=== PATIENT | male | born 1975 | race Caucasian/White ===

== ENCOUNTER 2019-12-11 14:47 | Outpatient (CLI) | payer OTHER, SELFPAY ==
--- NOTE | ~2019-12-11 | CT_ITS ---
EXAMINATION: CT abdomen pelvis w con INDICATION: Abdominal pain TECHNIQUE: Computed tomographic images of the abdomen and pelvis were obtained after the administrati on of 100 cc of Omnipaque 350 intravenous contrast. The dose-length product (DLP) was 1629.01 mGy-cm. Automated exposure control and iterative reconstruction technique were employed. COMPARISON: 08/23/2017 FINDINGS: The lung bases are clear. The heart size is normal. There is a small sliding hiatal hernia. A stable 1.5 cm cyst is noted in the right hepatic lobe. The liver is diffusely low in attenuation w hen compared with the spleen, consistent with hepatic steatosis. The spleen, pancreas, gallbladder, a nd adrenal glands are normal. The kidneys are unremarkable. No pathologically enlarged abdominal or p elvic lymph nodes are identified. There is colonic diverticulosis. There is wall thickening of the di stal descending colon with adjacent stranding of the pericolic fat. There is no evidence of perforati on or abscess. There are no dilated loops of bowel. The appendix is normal. There is an umbilical her ariane containing fat and a small amount of ascites. There is moderate lumbar spondylosis at L5-S1. IMPRESSION: 1. Acute, uncomplicated diverticulitis of the distal descending colon. Reviewed, dictated and finalized at location A.
== END 2019-12-11 14:48 | disposition home or self-care (01) ==
PROVIDERS: PCP Physician Assistant; Visit Provider Physician Assistant
DX: K57.32 Diverticulitis of large intestine without perforation or abscess without bleeding (principal)
CPT/HCPCS: 74177; Q9967

== ENCOUNTER 2020-01-24 09:04 | Emergency (ER) | payer OTHER, SELFPAY ==
--- NOTE | ~2020-01-24 | US_ITS ---
EXAMINATION: US venous doppler [facility] DATE: 01/24/2020 09:45 INDICATION: Left lower limb pain and swelling. TECHNIQUE: Grayscale ultrasound images without and with compression and Doppler ultrasound images of the left lower extremity veins were obtained. COMPARISON: None. FINDINGS: The visualized portions of left common femoral vein, profunda (deep) femoral vein, femoral vein, and greater saphenous vein outflow are patent. There is thrombus in left popliteal, posterior tibial, and peroneal veins. IMPRESSION: 1. Deep vein thrombosis involving left popliteal, peroneal, and posterior tibial veins. I called thi s result to Dr. Smith on 01/24/20 at 9:57 AM. Reviewed, dictated and finalized at location A. IMPRESSION: 1. Deep vein thrombosis involving left popliteal, peroneal, and posterior tibi al veins. I called this result to Dr. Smith on 01/24/20 at 9:57 AM.
[2020-01-24 09:06] VITALS: BP 154/91; PULSE 60; RESP 18; TEMP 36.2; O2SAT 100
--- NOTE | 2020-01-24 09:32 | PC.NURSE ---
Unable to obtain blood at this time, patient taken to ultrasound.
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
[2020-01-24 10:22] LABS: Basophils Percent Auto 0.4 % (0.2-1.2); Eosinophils Absolute Auto 0.3 K/mm3 (0-0.3); Eosinophils Percent Auto 2.7 % (0-4.4); Hematocrit 39.4 % (42.0-52.0); Hemoglobin 13.3 g/dL (14.0-18.0); Immature Granulocyte Absolute 0.02 K/mm3 (0.00-0.031); Immature Granulocyte Percent A 0.2 % (0-0.5); Lymphocytes Absolute Auto 2.27 K/mm3 (0.9-3.2); Lymphocytes Percent Auto 24.8 % (18.3-44.2); Mean Corpuscular HGB Conc 33.8 g/dl (32-36); Mean Corpuscular Volume 88.7 fl (80-100); Mean Platelet Volume 10.9 fl (7.4-10.4); Monocytes Absolute Auto 1.1 K/mm3 (0.1-0.6); Monocytes Percent Auto 11.5 % (2.6-8.5); Neutrophils Absolute Auto 5.5 K/mm3 (1.3-6.7); Neutrophils Percent Auto 60.4 % (45.5-73.1); Platelet Count Result 144 k/mm3 (150-375); Red Blood Count 4.44 M/mm3 (4.6-6.20); Red Cell Distribution Width 12.6 % (11.5-14.5); White Blood Count 9.1 K/mm3 (4.5-10.0)
[2020-01-24 10:31] LABS: Blood Urea Nitrogen 19 mg/dL (9-20); Calcium 8.6 mg/dL (8.4-10.2); Carbon Dioxide 26 mmol/L (22-30); Chloride 107 mmol/L (98-107); Estimated CRCL calculation 131 ml/min; Estimated Glomerular Filt Rate > 60; Glucose 97 mg/dL (75-110); Sodium 138 mmol/L (137-145)
[2020-01-24 10:41] VITALS: BP 124/77; PULSE 61; RESP 18; O2SAT 95
== END 2020-01-24 10:42 | disposition home or self-care (01) ==
PROVIDERS: Emergency Provider Emergency Medicine; PCP Physician Assistant
DX: I82.432 Acute embolism and thrombosis of left popliteal vein (principal); I82.452 Acute embolism and thrombosis of left peroneal vein; I82.442 Acute embolism and thrombosis of left tibial vein; F41.9 Anxiety disorder, unspecified; G47.33 Obstructive sleep apnea (adult) (pediatric); E66.9 Obesity, unspecified; Z68.33 Body mass index [BMI] 33.0-33.9, adult
CPT/HCPCS: 36415; 80048; 85025; 93971; 99284

== ENCOUNTER 2020-01-27 10:15 | Outpatient (CLI) | payer OTHER, SELFPAY ==
--- NOTE | ~2020-01-27 | CT_ITS ---
EXAMINATION: CTA chest PE protocol DATE: 01/27/2020 10:42 INDICATION: New venous thrombosis TECHNIQUE: Computed tomography angiography (CTA) of the chest was performed with 100 mL Omnipaque-350 intravenous contrast timed to evaluate the pulmonary arteries. Coronal maximum intensity projection 3D-reconstructions were created by the technologist. Automated exposure control and iterative reconst ruction technique were employed. Exam dose: 950.53 mGy-cm total exam DLP. COMPARISON: 01/24/2020 venous duplex examination of the left upper extremity FINDINGS: There is diagnostic contrast enhancement of the pulmonary arteries. Sagittal embolus right pulmonary artery, with thrombus extending into the right upper, middle and low er lobes. There is much lesser embolism to the left lower lobe. No thoracic aortic aneurysm or dissection. Borderline heart size. No pericardial or pleural effusion. No hilar or mediastinal mass lesion or adenopathy. The lungs are clear of infiltrate or consolidation. There is an approximately 1.7 cm right hepatic hypoattenuating lesion, insufficiently characterized o n this limited examination. Hepatic steatosis. There is a small sliding hiatal hernia. IMPRESSION: Bilateral pulmonary emboli, greater on the right I personally informed the patient of the findings of bilateral pulmonary emboli and the seriousness o f the diagnosis and the need for hospital admission. I attempted to contact the referring provider's telephone number at [phone], but repeatedly and busy signals. I informed the CT staff and the rad iology front office staff of the situation and asked them to contact the referring provider and notif y him or her that the patient was in the admitting office with a diagnosis of pulmonary embolism. Sander ntified two people in the admitting department of the situation as well. Reviewed, dictated and finalized at Location A. Reviewed, dictated and finalized at location A. IMPRESSION: Bilateral pulmonary emboli, greater on the right I personally informed the patient of the findings of bilateral pulmonary emboli and the seriousness of the diagnosis and the need for hospital admission. I at tempted to contact the referring provider's telephone number at [phone], celso t repeatedly and busy signals. I informed the CT staff and the radiology front office staff of the situation and asked them to contact the referring provider and notify him or her that the patient was in the admitting office with a diagn osis of pulmonary embolism. Identified two people in the admitting department o f the situation as well.
== END 2020-01-27 10:16 | disposition home or self-care (01) ==
LOC: ANHIMG 10:21
PROVIDERS: PCP Physician Assistant; Visit Provider Physician Assistant
DX: I82.409 Acute embolism and thrombosis of unspecified deep veins of unspecified lower extremity (principal); I26.99 Other pulmonary embolism without acute cor pulmonale
CPT/HCPCS: 71275; Q9967

== ENCOUNTER 2020-01-27 16:10 | Emergency (ER) | payer OTHER, SELFPAY ==
[2020-01-27 16:32] VITALS: BP 143/70; PULSE 66; RESP 18; TEMP 36.6; O2SAT 99
--- NOTE | 2020-01-27 17:10 | ED.SOB ---
HPI - SOB/Dyspnea General Chief Complaint: Shortness of Breath/Dyspnea Stated Complaint: pe Time Seen by Provider: 01/27/20 17:10 History of Present Illness HPI Narrative: Seen here on 01/23 and diagnosed with LLE DVT. Started on xarelto. Developed some SOLIS and had CTA of his chest done today showing bilateral PE. He denies any pain. He is primarily only short of breath with exertion, such as walking up the stairs. Related Data Home Medications Medication Instructions Recorded Confirmed paroxetine HCl 20 mg PO DAILY 06/02/19 06/05/19 Allergies Allergy/AdvReac Type Severity Reaction Status Date / Time No Known Allergies Allergy Verified 01/27/20 17:16 Review of Systems Review of Systems: All systems reviewed & are unremarkable except as noted in HPI and below Constitutional: Constitutional: Denies fever(s) Cardiovascular: Cardiovascular: Denies chest pain Respiratory: Respiratory: Reports cough and Reports dyspnea Gastrointestinal: Gastrointestinal: Denies abdominal pain and Denies nausea PMFSH Past Medical History Medical History (Updated 01/27/20 @ 19:04 by Bereket Edwards MD) Anxiety Chiari malformation Diverticulitis Obesity CHANI (obstructive sleep apnea) Pulmonary emboli Surgical History Surgical History H/O brain surgery Chiari malformation repair H/O colonoscopy Social History Social History Smoking status: Never smoker Gender identity (if verbalized by the patient): Male Exam Const: General: healthy appearing, no acute distress and alert Orientation/consciousness: patient oriented x3 HENMT: Head: normal to inspection Neck: Neck: normal visual inspection and no lymphadenopathy Chest: Chest palpation & inspection: no tenderness Resp: Effort & Inspection: normal respiratory effort Auscultation: clear to auscultation bilaterally, no rales, no rhonchi and no wheezes Cardio: Jugular venous distension: no JVD Rate: regular rate Rhythm: regular rhythm Heart sounds: no murmurs GI: Inspection: non-distended GI Palp: Yes Soft to palpation and No Tenderness to palpation present (GI) Skin: General skin exam: normal color Neuro: General: patient oriented x3 and moves all extremities Speech: normal speech Extrem: Other: Left calf moderately swollen compared to the right Psych: Appearance: well kempt Affect: normal affect Course Vital Signs Vital signs: Vital Signs Temperature 36.6 C 01/27/20 16:32 Pulse Rate 66 01/27/20 16:32 Respiratory Rate 18 01/27/20 16:32 Blood Pressure 143/70 H 01/27/20 16:32 Pulse Oximetry 99 01/27/20 16:32 Temperature 36.6 C 01/27/20 16:32 Pulse Rate 64 01/27/20 18:00 Respiratory Rate 20 01/27/20 18:00 Blood Pressure 121/69 01/27/20 18:00 Pulse Oximetry 97 01/27/20 18:00 MDM - SOB/Dyspnea MDM Narrative Medical decision making narrative: He has a newly diagnosed PE he is currently therapeutic on xarelto. I will check labs for signs of heart strain. If these are normal I will walk him on pulse oximetry to ensure that he is not desaturating. If this is normal he should be safe for discharge. Medical Records Attestation: I reviewed the patient's medical records. Lab Data Attestation: I reviewed the patient's lab results. Result diagrams: 01/27/20 17:53 01/27/20 17:53 Labs: Lab Results 01/27/20 01/27/20 01/27/20 Range/Units 17:53 17:53 17:53 WBC 9.0 (4.5-10.0) K/mm3 RBC 4.98 (4.6-6.20) M/mm3 Hgb 14.8 (14.0-18.0) g/dL Hct 44.8 (42.0-52.0) % MCV 90.0 (80-100) fl MCH 29.7 (26-34) pg MCHC 33.0 (32-36) g/dl RDW 12.4 (11.5-14.5) % Plt Count 232 D (150-375) k/mm3 MPV 11.1 H (7.4-10.4) fl Immature Gran % (Auto) 0.2 (0-0.5) % Neut % (Auto) 59.3 (45.5-73.1) % Lymph % (Auto) 24.1 (18.3-44.2) % Mo
--- NOTE | 2020-01-27 17:28 | ECG_ITS ---
Measurements Intervals [place] Rate: 57 P: 48 [place]: 214 QRS: 14 QRSD: 84 T: 3 QT: 414 QTc: 405 Interpretive Statements SINUS BRADYCARDIA WITH FIRST DEGREE AV BLOCK DELAYED PRECORDIAL R/S TRANSITION BORDERLINE ST-T WAVE ABNORMALITY- ANT/INF LEADS ABNORMAL ECG Electronically Signed On 01-27-2020 20:54:45 CDT by Enoc Zapien D.O.
[2020-01-27 17:30] VITALS: PULSE 60; RESP 16; O2SAT 98
[2020-01-27 18:00] VITALS: BP 121/69; PULSE 64; RESP 20; O2SAT 97
[2020-01-27 18:16] LABS: Basophils Absolute Auto 0.1 K/mm3 (0.0-0.1); Basophils Percent Auto 0.7 % (0.2-1.2); Eosinophils Absolute Auto 0.3 K/mm3 (0-0.3); Eosinophils Percent Auto 2.9 % (0-4.4); Hematocrit 44.8 % (42.0-52.0); Hemoglobin 14.8 g/dL (14.0-18.0); Immature Granulocyte Absolute 0.02 K/mm3 (0.00-0.031); Immature Granulocyte Percent A 0.2 % (0-0.5); Lymphocytes Absolute Auto 2.18 K/mm3 (0.9-3.2); Lymphocytes Percent Auto 24.1 % (18.3-44.2); Mean Corpuscular Hemoglobin 29.7 pg (26-34); Mean Platelet Volume 11.1 fl (7.4-10.4); Monocytes Absolute Auto 1.2 K/mm3 (0.1-0.6); Monocytes Percent Auto 12.8 % (2.6-8.5); Neutrophils Absolute Auto 5.4 K/mm3 (1.3-6.7); Neutrophils Percent Auto 59.3 % (45.5-73.1); Platelet Count Result 232 k/mm3 (150-375); Red Blood Count 4.98 M/mm3 (4.6-6.20); Red Cell Distribution Width 12.4 % (11.5-14.5)
[2020-01-27 18:27] LABS: INR 1.4; Prothrombin Time 16.5 Seconds (11.1-14.7)
[2020-01-27 18:28] LABS: Partial Thromboplastin Time 41.5 SECONDS (22.3-36.8)
[2020-01-27 18:29] LABS: Blood Urea Nitrogen 13 mg/dL (9-20); Calcium 9.3 mg/dL (8.4-10.2); Carbon Dioxide 29 mmol/L (22-30); Chloride 103 mmol/L (98-107); Estimated CRCL calculation 131 ml/min; Estimated Glomerular Filt Rate > 60; Glucose 75 mg/dL (75-110); Potassium 4.3 mmol/L (3.4-5.0); Sodium 141 mmol/L (137-145)
[2020-01-27 18:41] LABS: NT Pro B Type Natriuretic Pept 54 PG/ML (5-100); Troponin I < 0.012 ng/mL (0.000-0.034)
[2020-01-27 19:03] VITALS: BP 119/75; PULSE 60; RESP 18; O2SAT 100
[2020-01-27 19:15] VITALS: PULSE 64; RESP 22; O2SAT 100
== END 2020-01-27 19:40 | disposition home or self-care (01) ==
PROVIDERS: Emergency Provider Emergency Medicine; PCP Physician Assistant
DX: I26.94 Multiple subsegmental thrombotic pulmonary emboli without acute cor pulmonale (principal); F41.9 Anxiety disorder, unspecified; G47.30 Sleep apnea, unspecified
CPT/HCPCS: 36415; 80048; 83880; 84484; 85025; 85610; 85730; 93005; 99284

== ENCOUNTER 2020-04-05 16:39 | Outpatient (CLI) | payer OTHER, SELFPAY ==
--- NOTE | ~2020-04-05 | MR_ITS ---
EXAMINATION: MR IAC wo/w con DATE: 04/05/2020 17:55 INDICATION: Asymmetric hearing loss, worse on the right. TECHNIQUE: Magnetic resonance imaging (MRI) of the brain, brainstem, and internal auditory canals was performed without and with 20 mL MultiHance intravenous contrast. Sequences included sagittal and ax ial T1-weighted FSE, axial diffusion-weighted FS EPI, axial T2*-weighted GRE, axial T2-weighted FLAIR Propeller, axial T2-weighted Propeller, small kxyvu-xc-jiqo coronal FIESTA, small flhli-iq-lpgi eda nal T1-weighted FSE, and small abmci-ms-emnd axial T1-weighted SPGR. Postcontrast sequences included axial T1-weighted FSE, small rnyyl-mc-bvqp coronal T1-weighted FSE, and small zguoq-hj-hbgx axial T1- weighted SPGR. Apparent diffusion coefficient (ADC) maps were created. COMPARISON: None. FINDINGS: There are changes of suboccipital craniectomy. There are areas of nonspecific increased T2- weighted signal intensity in the periventricular cerebral white matter, which is within normal limits for the patient's age. There is no intracranial hemorrhage, acute infarction, or abnormal intracrani al mass lesion. The ventricles are normal in size. The internal auditory canals and inner ears are no rmal. There is a right mastoid effusion. The orbits are normal. There is mild mucosal thickening in t he paranasal sinuses. IMPRESSION: 1. Normal brain. 2. Right mastoid effusion. Reviewed, dictated and finalized at location A.
[2020-04-05 17:14] LABS: Estimated Glomerular Filt Rate > 60
== END 2020-04-05 16:40 | disposition home or self-care (01) ==
PROVIDERS: PCP Physician Assistant; Visit Provider Otolaryngology
DX: H91.8X9 Other specified hearing loss, unspecified ear (principal)
CPT/HCPCS: 70553; A9577

== ENCOUNTER → 2020-07-29 09:55 | Outpatient (CLI) | payer OTHER, SELFPAY ==
--- NOTE | ~2020-07-29 | CT_ITS ---
EXAMINATION: CTA chest PE protocol EXAM DATE: 07/29/2020 10:23 INDICATION: Pulmonary embolism. Follow-up. TECHNIQUE: Spiral CTA of the chest (pulmonary arteries) was performed with 100 cc Omnipaque 350 intr avenous contrast injection. Images were acquired during the pulmonary arterial phase. Coronal maxi mum intensity projection 3D-reconstructions were created by the technologist on dedicated workstation . Axial, coronal and sagittal reformatted images were reviewed. The dose-length product (DLP) for t his examination was 813.94 mGy-cm. The exposure was tailored according to patient size (auto mA exp osure control), and iterative reconstruction (ASIR) was used as additional dose reduction technique. Comparison is made to prior examination from 01/27/2020. FINDINGS: Interval resolution of previously seen pulmonary emboli. There is mosaic attenuation invol ving both lungs, was not present on prior study. This is suspected to be most likely air trapping. D ifferential diagnosis for this includes air trapping (asthma, bronchiolitis obliterans), vasculitis, or less likely groundglass opacity. Groundglass opacity can be caused acutely by edema, infection (P CP in an immunocompromised patients) or hemorrhage. It can also be caused by chronic processes such as hypersensitivity pneumonitis, nonspecific interstitial pneumonitis (NSIP), cryptogenic organized p neumonia, desquamative interstitial pneumonitis(DIP). No thoracic aortic dissection. There are no pleural or pericardial effusions. Tracheobronchial alessandro e is patent. There is no mediastinal, hilar or axillary lymphadenopathy. There is no pneumothorax . Heart normal in size. No evidence of coronary arterial calcification. There is 1.5 cm right sandra er dome lesion measuring fluid density unchanged, probably a cyst. There is hepatic steatosis. There is thoracic spondylosis without osteoblastic or osteolytic lesions identified. Mild upper thoracic scoliosis. IMPRESSION: 1. Resolution of previously seen pulmonary emboli. 2. Diffuse mosaic attenuation most likely mild air trapping. 3. Hepatic steatosis. Reviewed, dictated and finalized at location B. [employer]GER
== END ==
PROVIDERS: PCP Physician Assistant; Visit Provider Physician Assistant
DX: I26.99 Other pulmonary embolism without acute cor pulmonale (principal); K76.0 Fatty (change of) liver, not elsewhere classified
CPT/HCPCS: 71275; Q9967

== ENCOUNTER 2021-01-01 22:03 | Emergency (ER) | payer OTHER, SELFPAY ==
--- NOTE | ~2021-01-01 | XR_ITS ---
EXAMINATION: XR shoulder RT min 2V INDICATION: Right shoulder pain TECHNIQUE: Four views of the right shoulder are submitted. COMPARISON: None FINDINGS: Normal alignment. No fracture. Glenohumeral and acromioclavicular joint spaces are normal. Soft tissues are unremarkable. IMPRESSION: 1. No acute osseous abnormality. Reviewed, dictated and finalized at location A.
[2021-01-01 22:10] VITALS: BP 118/73; PULSE 74; RESP 20; TEMP 36.6; O2SAT 97
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
[2021-01-01] MEDS: MORPHINE SULFATE (*CRX) 4 MG/ML INJ IM (23:41)
[2021-01-01 23:43] VITALS: BP 116/71; PULSE 70; RESP 20; O2SAT 99
== END 2021-01-02 00:12 | disposition home or self-care (01) ==
PROVIDERS: Emergency Provider Emergency Medicine; PCP Physician Assistant
DX: S46.001A Unspecified injury of muscle(s) and tendon(s) of the rotator cuff of right shoulder, initial encounter (principal); G47.33 Obstructive sleep apnea (adult) (pediatric); F41.9 Anxiety disorder, unspecified; Z86.711 Personal history of pulmonary embolism; E66.9 Obesity, unspecified; Z68.33 Body mass index [BMI] 33.0-33.9, adult; Z79.82 Long term (current) use of aspirin; V18.0XXA Pedal cycle driver injured in noncollision transport accident in nontraffic accident, initial encounter; Y93.55 Activity, bike riding
CPT/HCPCS: 73030; 96372; 99283; A4565; J2270

== ENCOUNTER 2021-01-13 12:53 | Outpatient (CLI) | payer OTHER, SELFPAY ==
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
== END 2021-01-13 12:54 | disposition home or self-care (01) ==
PROVIDERS: PCP Physician Assistant; Visit Provider Physician Assistant
DX: S46.011A Strain of muscle(s) and tendon(s) of the rotator cuff of right shoulder, initial encounter (principal); X58.XXXA Exposure to other specified factors, initial encounter; M19.011 Primary osteoarthritis, right shoulder
CPT/HCPCS: 73221

== ENCOUNTER 2021-08-05 01:16 | Emergency (ER) | payer OTHER, SELFPAY ==
--- NOTE | ~2021-08-05 | CT_ITS ---
EXAMINATION: CT abdomen pelvis wo con DATE: 08/05/2021 03:15 INDICATION: Left abdominal pain, hematuria. TECHNIQUE: Computed tomography (CT) of the abdomen and pelvis was performed without intravenous contr ast. Automated exposure control and iterative reconstruction technique were employed. Exam dose: 152 8.60 mGy-cm total exam DLP. COMPARISON: None. FINDINGS: The lung bases are clear. Heart size is within normal range. No pericardial or pleural effu estefania. Small sliding hiatal hernia. Hepatic steatosis. 1.7 cm right hepatic cyst. The gallbladder appears unremarkable. No bile duct or p ancreatic duct dilatation. No pancreatic mass lesion or calcification is detected. Normal splenic siz e. Normal morphology of the adrenal glands. Approximately 4.5 mm x 6 distal left ureteral calculus with associated mild proximal left hydroureter onephrosis. No other urinary tract calculus. Prostate enlargement and calcifications. The urinary bladder is unremarkable. Normal appendix. There are numerous diverticula of the sigmoid and descending colon, splenic flexure, as well as scattered transverse and ascending colon diverticula. No CT evidence of diverticulitis. N o bowel obstruction or intraperitoneal free air. Normal caliber of the abdominal aorta. No intraperitoneal or retroperitoneal or pelvic mass lesion or adenopathy or ascites. Up to 4.4 cm fat-containing umbilical hernia is approximately 1.7 cm neck. Moderately severe degenerative disease and mild retrolisthesis at L5-S1. No suspicious osteolytic or osteoblastic lesions are noted. IMPRESSION: Approximately 4.5 x 6 mm left ureteral calculus with associated mild proximal left hydro ureteronephrosis 4.4 cm fat-containing umbilical hernia Hepatic steatosis 1.7 cm right hepatic cyst Diverticulosis of left and right colon; no CT evidence of diverticulitis Reviewed, dictated and finalized at [facility]. Reviewed, dictated and finalized at [facility]. [employer] IMAGING DIRECTOR IMPRESSION: Approximately 4.5 x 6 mm left ureteral calculus with associated mi ld proximal left hydroureteronephrosis 4.4 cm fat-containing umbilical hernia Hepatic steatosis 1.7 cm right hepatic cyst Diverticulosis of left and right colon; no CT evidence of diverticulitis
--- NOTE | ~2021-08-05 | XR_ITS ---
XR abdomen/kub 1V DATE: 08/05/2021 03:06 INDICATION: Left abdominal pain, hematuria. Distal left ureteral calculus TECHNIQUE: AP projection, 2 views COMPARISON: 08/05/2021 CT abdomen pelvis FINDINGS: Very faintly calcified distal left ureteral calculus is noted, measuring approximately 5 mm . No evidence of bowel obstruction. The psoas shadows are intact. No visceromegaly is evident. IMPRESSION: Faintly calcified approximately 5 mm distal left ureteral calculus Reviewed, dictated and finalized at [facility]. Reviewed, dictated and finalized at [facility]. ATION SPECIALIST
[2021-08-05 01:22] VITALS: BP 136/79; PULSE 66; RESP 18; TEMP 36.6; O2SAT 100
--- NOTE | 2021-08-05 02:08 | ED.ABDPAIN ---
HPI - Abdominal Pain General Chief Complaint: Abdominal Pain Stated Complaint: abd pain Source: patient and RN notes reviewed Mode of arrival: ambulatory Limitations: no limitations History of Present Illness HPI narrative: This is a 46 year old male who presents for evaluation of left lower abdominal pain. He states he was asleep when he developed sudden onset left lower abdominal pressure. He states his pain was severe for 1 hour so he called EMS. He had associated nausea but no vomiting or diarrhea. He states his pain at its most intense was 9/10 and it is currently minimal at 1/10. He was worried that he may have diverticulitis or perforation as he had in the past. He has not taken anything for pain. Patient was started on Xarelto 1 month ago for left leg DVT Related Data Home Medications Medication Instructions Recorded Confirmed rivaroxaban [Xarelto] 20 mg PO DAILY 08/05/21 08/05/21 Allergies Allergy/AdvReac Type Severity Reaction Status Date / Time No Known Allergies Allergy Verified 08/05/21 01:26 Review of Systems Review of Systems: All systems reviewed & are unremarkable except as noted in HPI and below PMFSH Past Medical History Medical History (Updated 08/05/21 @ 04:05 by Peggy Ware MD) Anxiety Chiari malformation Diverticulitis DVT (deep venous thrombosis) Obesity CHANI (obstructive sleep apnea) Pulmonary emboli Surgical History Surgical History H/O brain surgery Chiari malformation repair H/O colonoscopy Family History Family History Unknown Cancer Social History Social History Smoking status: Never smoker Alcohol intake: current Drinks per week: 0 Alcohol use details: very infrequent Substance use: never Gender identity (if verbalized by the patient): Male Exam Const: General: no acute distress and alert Orientation/consciousness: patient oriented x3 Eyes: EOM: EOMs intact bilaterally Chest: Chest palpation & inspection: normal inspection of the chest Resp: Effort & Inspection: normal respiratory effort and no retractions Auscultation: clear to auscultation bilaterally Cardio: Rate: regular rate Rhythm: regular rhythm Heart sounds: no murmurs GI: GI Palp: Yes Soft to palpation, No Tenderness to palpation present (GI) and No Guarding due to palpation present (GI) Auscultation: normal bowel sounds : General: Yes no CVA tenderness Skin: General skin exam: normal color Neuro: General: patient oriented x3, moves all extremities and CN's II-XI intact bilaterally Psych: Mental Status: mental status grossly normal Affect: normal affect Course Reevaluation(s) Reevaluation #1: PAtient is having minimal pain. I discussed with patient CT shows distal ureteral stone that is likely cause of pain. Radiologist reports possible diverticulitis. I think his pain is due to kidney stone. I discussed discharge plan with patient. Date: 08/05/21 Time: 04:00 Vital Signs Vital signs: Vital Signs Temperature 98 F 08/05/21 01:22 Pulse Rate 66 08/05/21 01:22 Respiratory Rate 18 08/05/21 01:22 Blood Pressure 136/79 08/05/21 01:22 Pulse Oximetry 100 08/05/21 01:22 Temperature 98 F 08/05/21 01:22 Pulse Rate 62 08/05/21 04:23 Respiratory Rate 18 08/05/21 04:23 Blood Pressure 133/84 08/05/21 04:23 Pulse Oximetry 98 08/05/21 04:23 MDM - Abdominal Pain Lab Data Attestation: I reviewed the patient's lab results. Result diagrams: 08/05/21 02:24 08/05/21 02:24 Labs: Lab Results 08/05/21 08/05/21 08/05/21 Range/Units 02:21 02:24 02:24 WBC 9.7 (4.5-10.0) K/mm3 RBC 4.53 L (4.6-6.20) M/mm3 Hgb 13.6 L (14.0-18.0) g/dL Hct 40.8 L (42.0-52.0) % MCV 90.1 (80-100) fl MCH 30.0
[2021-08-05 02:33] LABS: Basophils Absolute Auto 0.1 K/mm3 (0.0-0.1); Basophils Percent Auto 0.8 % (0.2-1.2); Eosinophils Absolute Auto 0.2 K/mm3 (0-0.3); Eosinophils Percent Auto 2.4 % (0-4.4); Hematocrit 40.8 % (42.0-52.0); Hemoglobin 13.6 g/dL (14.0-18.0); Immature Granulocyte Absolute 0.02 K/mm3 (0.00-0.031); Immature Granulocyte Percent A 0.2 % (0-0.5); Lymphocytes Absolute Auto 2.18 K/mm3 (0.9-3.2); Lymphocytes Percent Auto 22.5 % (18.3-44.2); Mean Corpuscular HGB Conc 33.3 g/dl (32-36); Mean Corpuscular Volume 90.1 fl (80-100); Monocytes Percent Auto 10.4 % (2.6-8.5); Neutrophils Absolute Auto 6.2 K/mm3 (1.3-6.7); Neutrophils Percent Auto 63.7 % (45.5-73.1); Platelet Count Result 238 k/mm3 (150-375); Red Blood Count 4.53 M/mm3 (4.6-6.20); Red Cell Distribution Width 12.7 % (11.5-14.5); White Blood Count 9.7 K/mm3 (4.5-10.0)
[2021-08-05 02:44] LABS: Alanine Aminotransferase 29 U/L (4-50); Albumin Level 4.3 g/dL (3.5-5.1); Alkaline Phosphatase 59 U/L (38-126); Anion Gap 10 mmol/L (8-16); Aspartate Amino Transferase 32 U/L (17-59); Bilirubin,Total 0.5 mg/dL (0.2-1.3); Blood Urea Nitrogen 20 mg/dL (9-20); Calcium 9.4 mg/dL (8.4-10.2); Carbon Dioxide 28 mmol/L (22-30); Chloride 103 mmol/L (98-107); Estimated CRCL calculation 100 ml/min; Estimated Glomerular Filt Rate > 60; Glucose 114 mg/dL (65-110); Lipase 55 U/L (23-300); Potassium 4.1 mmol/L (3.4-5.0); Sodium 141 mmol/L (137-145)
[2021-08-05 02:46] LABS: Add Urine Microscopic? YES; Appearance Urine Cloudy (Clear); Bilirubin Urine Negative (Negative); Blood Urine 3+ (Negative); Color Urine Amber (Yellow); Glucose Urine UA Negative (Negative); Ketones Urine Negative (Negative); Leukocyte Esterase Ur Negative LEU/UL (Negative); Mucus Urine Rare /lpf; Nitrate Urine Negative (Negative); Protein Urine 2+ mg/dL (Negative); RBC Urine >75 /hpf (0-2); Specific Grav Ur 1.023 (1.001-1.035); Urobilinogen Urine Negative mg/dL (<2.0)
[2021-08-05 03:45] VITALS: BP 139/74; PULSE 60; RESP 18; O2SAT 99
[2021-08-05] MEDS: TAMSULOSIN HCL 0.4 MG CAPSULE PO (04:14)
[2021-08-05 04:23] VITALS: BP 133/84; PULSE 62; RESP 18; O2SAT 98
== END 2021-08-05 04:25 | disposition home or self-care (01) ==
PROVIDERS: Emergency Provider General Practice; PCP Physician Assistant
DX: N13.2 Hydronephrosis with renal and ureteral calculous obstruction (principal); K57.32 Diverticulitis of large intestine without perforation or abscess without bleeding; E66.9 Obesity, unspecified; Z68.36 Body mass index [BMI] 36.0-36.9, adult; G47.33 Obstructive sleep apnea (adult) (pediatric); Z86.718 Personal history of other venous thrombosis and embolism; Z86.711 Personal history of pulmonary embolism; Z79.01 Long term (current) use of anticoagulants; K42.9 Umbilical hernia without obstruction or gangrene; K76.0 Fatty (change of) liver, not elsewhere classified; K76.89 Other specified diseases of liver
CPT/HCPCS: 36415; 74018; 74176; 80053; 81001; 83690; 85025; 99284; A9270

== ENCOUNTER 2021-08-05 21:24 | Observation (INO) | payer OTHER, SELFPAY ==
[2021-08-05 21:28] VITALS: BP 133/61; PULSE 58; RESP 18; TEMP 36.1; O2SAT 99
--- NOTE | 2021-08-05 22:08 | ED.GENADULT ---
HPI - General Adult General Chief complaint: Urogenital-Male Stated complaint: left flank pain Time Seen by Provider: 08/05/21 21:51 Source: RN notes reviewed History of Present Illness HPI narrative: Patient presents emergency department from home for left flank pain. Patient states he was in the emergency department this morning when he was diagnosed with a left kidney stone. States he was discharged at that time with Percocets as well as antibiotics and Flomax which she has been taking but continues to have pain and presented for pain control this evening. Patient denies any fever chills chest pain or shortness of breath does note nausea as well as a feeling to need to urinate but very little urine coming out he denies any other symptoms at this time Related Data Home Medications Medication Instructions Recorded Confirmed rivaroxaban [Xarelto] 20 mg PO DAILY 08/05/21 08/05/21 Allergies Allergy/AdvReac Type Severity Reaction Status Date / Time No Known Allergies Allergy Verified 08/05/21 01:26 Review of Systems Review of Systems: Gen.: Denies fevers or chills ENT: Denies congestion Respiratory: Denies shortness of breath or cough CV: Denies chest pain or palpitations GI: See HPI reports kidney stone Musculoskeletal: Denies back pain or muscle pain Neuro: Denies numbness, tingling, weakness or focal weakness Skin: Denies rash Except as documented, all other systems reviewed and negative [facility] Past Medical History Medical History Anxiety Chiari malformation Diverticulitis DVT (deep venous thrombosis) Obesity CHANI (obstructive sleep apnea) Pulmonary emboli Surgical History Surgical History H/O brain surgery Chiari malformation repair H/O colonoscopy Family History Family History Unknown Cancer Social History Social History Smoking status: Never smoker Alcohol intake: current Drinks per week: 0 Alcohol use details: very infrequent Substance use: never Gender identity (if verbalized by the patient): Male Exam Narrative: APPEARANCE: No acute distress, nontoxic, resting in bed EYES: EOMI HEENT: Normocephalic, atraumatic, OMM RESPIRATORY: No respiratory distress Clear to auscultation bilaterally with no rhonchi wheezing or rales. CARDIOVASCULAR: Regular rate and rhythm without murmurs rubs or gallops. ABDOMINAL: Soft, nondistended palpation left upper quadrant left lower quadrant no tenderness right upper quadrant right lower quadrant no rebound or guarding, left flank tenderness MUSCULOSKELETAl: Moves all extremities. No clubbing, cyanosis or edema. NEURO: Awake and alert. Following commands, speech normal, no focal deficits SKIN:: Warm, dry. No rashes lesions or abrasions PSYCHIATRIC: Normal affect/mood, Course Course Emergency Course: Reviewed old records including CT scan showing left kidney stone Discussed with Dr. Ceron presentation work-up agrees with consult Discussed with Dr. Skinner who agrees with admission Discussed with patient and family results of workup and diagnosis. Discussed need for admission. Patient and family understand and agree to current treatment plan Vital Signs Vital signs: Vital Signs Temperature 96.9 F L 08/05/21 21:28 Pulse Rate 58 L 08/05/21 21:28 Respiratory Rate 18 08/05/21 21:28 Blood Pressure 133/61 08/05/21 21:28 Pulse Oximetry 99 08/05/21 21:28 Temperature 96.9 F L 08/05/21 21:28 Pulse Rate 61 08/06/21 00:42 Respiratory Rate 18 08/06/21 00:42 Blood Pressure 134/67 08/06/21 00:42 Pulse Oximetry 95 08/06/21 00:42 Medical Decision Making Vital Signs Vital Signs: Vital Signs Temperature 96.9 F L 08/05/21 21:28 Pulse Rate 58 L 08/05/21 21:28 Respiratory Rate 18
[2021-08-05] MEDS: SODIUM CHLORIDE 0.9% IV 1,000 ML 999 ML IV CONT (22:14)
[2021-08-05] MEDS: MORPHINE SULFATE (*CRX) 4 MG/ML INJ IV PUSH (22:14)
[2021-08-05 22:17] VITALS: BP 148/71; PULSE 62; RESP 18; O2SAT 97
[2021-08-05 22:17] LABS: Basophils Absolute Auto 0.1 K/mm3 (0.0-0.1); Basophils Percent Auto 0.5 % (0.2-1.2); Eosinophils Absolute Auto 0.1 K/mm3 (0-0.3); Eosinophils Percent Auto 0.6 % (0-4.4); Hematocrit 42.6 % (42.0-52.0); Hemoglobin 13.9 g/dL (14.0-18.0); Immature Granulocyte Absolute 0.04 K/mm3 (0.00-0.031); Immature Granulocyte Percent A 0.3 % (0-0.5); Lymphocytes Absolute Auto 1.23 K/mm3 (0.9-3.2); Lymphocytes Percent Auto 9.8 % (18.3-44.2); Mean Corpuscular HGB Conc 32.6 g/dl (32-36); Mean Corpuscular Hemoglobin 29.4 pg (26-34); Mean Corpuscular Volume 90.1 fl (80-100); Monocytes Percent Auto 7.9 % (2.6-8.5); Neutrophils Absolute Auto 10.1 K/mm3 (1.3-6.7); Neutrophils Percent Auto 80.9 % (45.5-73.1); Platelet Count Result 237 k/mm3 (150-375); Red Blood Count 4.73 M/mm3 (4.6-6.20); Red Cell Distribution Width 12.5 % (11.5-14.5); White Blood Count 12.5 K/mm3 (4.5-10.0)
--- NOTE | 2021-08-05 22:21 | PC.NURSE ---
states feels like he has to go to urinate all the time freq small amounts or nothing coming out
[2021-08-05 22:30] LABS: Anion Gap 8 mmol/L (8-16); Blood Urea Nitrogen 18 mg/dL (9-20); Calcium 9.5 mg/dL (8.4-10.2); Carbon Dioxide 29 mmol/L (22-30); Chloride 100 mmol/L (98-107); Estimated CRCL calculation 93 ml/min; Estimated Glomerular Filt Rate 59; Glucose 134 mg/dL (65-110); Potassium 4.1 mmol/L (3.4-5.0); Sodium 137 mmol/L (137-145)
[2021-08-05] MEDS: ONDANSETRON INJ 4 MG/2 ML VIAL IV PUSH (22:38)
[2021-08-06 00:30] LABS: Add Urine Microscopic? YES; Appearance Urine Cloudy (Clear); Bacteria Urine Trace /hpf; Bilirubin Urine Negative (Negative); Blood Urine 3+ (Negative); Budding Yeast Urine Present /hpf; Color Urine Amber (Yellow); Glucose Urine UA Negative (Negative); Ketones Urine Negative (Negative); Leukocyte Esterase Ur Negative LEU/UL (Negative); Mucus Urine Few /lpf; Nitrate Urine Negative (Negative); Protein Urine 2+ mg/dL (Negative); RBC Urine >75 /hpf (0-2); Squamous Epithelial Cell Urine Occasional /hpf (Few); Urobilinogen Urine Negative mg/dL (<2.0); WBC Urine 16-20 /hpf
[2021-08-06] MEDS: MORPHINE SULFATE (*CRX) 2 MG/ML INJ IV PUSH (00:39)
[2021-08-06 00:42] VITALS: BP 134/67; PULSE 61; RESP 18; O2SAT 95
[2021-08-06 00:49] LABS: Specific Grav Ur 1.032 (1.001-1.035)
[2021-08-06 01:49] LABS: EDCOVIDSCREEN Negative (Negative)
[2021-08-06 03:43] VITALS: BP 134/78; PULSE 56; RESP 20; O2SAT 95
[2021-08-06 04:25] VITALS: BP 142/67; PULSE 70; RESP 20; TEMP 36.7; O2SAT 100
--- NOTE | 2021-08-06 04:26 | ADMGEN ---
This patient, Glen Saucedo, was admitted to [address] [place] [address] Room 330-01. Patient/family oriented to hospital policies and general routines including ID bracelet, bed and alarms, visiting hours, pain management, procedures, bathroom and other care routines, personal items, smoking policy, room service/diet, and visiting hours. Information on how to activate the Rapid Response Team has been discussed. Patient/Family are encouraged to report perceived risks to care and to ask questions if they do not understand what they are told or what they should do.
[2021-08-06] MEDS: SODIUM CHLORIDE 0.9% IV 1,000 ML 125 ML IV CONT (04:57)
[2021-08-06] MEDS: MORPHINE SULFATE (*CRX) 4 MG/ML INJ IV PUSH (04:58)
--- NOTE | 2021-08-06 08:36 | WPDURCON ---
Assessment and Plan Assessment and plan (1) Hydronephrosis, left: Code(s): N13.30 - Unspecified hydronephrosis Status: Acute (2) Kidney stone on left side: Code(s): N20.0 - Calculus of kidney Status: Acute Assessment and Plan: 46 yo male with 4-5 mm distal left ureter stone with hydronephrosis, recent DVT, now with no pain -we discussed treatment of ureter stones in detail with expectant management, trial of passage, placement of ureter stent with deferred stone management, ESWL and URS -we discussed side effects of ureter stent, temporary nature of the stent and the fact he would need additional treatment to remove stent -given his lack of pain, stone position/location he has a high likelihood of passing this stone spontaneously with expectant management -he is not a candidate for ESWL given recent DVT and anti-coagulation use -I recommend pain control with 15mg IV toradol this am, and po toradol at discharge ( he was instructed to avoid all other ASA, NSAIDS due to increased bleeding risks) -continue tamsulosin and percocet for breakthrough pain -if pain returns or fever/chills/inability to tolerate po, then URS/stent would be indicated. -given his recent DVT he would like to avoid any procedure or general anesthesia if possible, which I think is reasonable given his current lack of symptoms - we discussed need for followup to confirm stone passage, we discussed the risk of silent obstruction and permanent kidney injury or kidney loss if he fails to followup. he voiced understanding and is agreeable to close followup, all ? answered Urology Consult Note HPI Date Seen: 08/06/21 Requesting Physician: Dina Rosado PA-C Primary Care Provider: Jad Yeh, JOEY Consult Narrative Narrative: Glen Saucedo is a 46 year old male who presented to [facility] ER with a 1 day hx of left flank pain. He was diagnosed with a 4-5mm distal ureter stone and was sent home on percocet, flomax and returned to the ER due to inadequate pain control. KUB shos stone in similar position. He had nausea and poor po intake. His pain was rated 10/10. This am he states he slept well and has 0/10 pain. No nausea/vomiting, fever or chills. He denies GH or dysuria. No prior hx of stones. Pain was initially colicky and stabbing in nature, now has resolved. Of note he has a recent DVT in June and has been on Xarelto. We discussed management of ureter stones in detail. Given lack of pain he wants a trial of stone passage Review of Systems Review of Systems: All systems reviewed & are unremarkable except as noted in HPI and below Constitutional: Constitutional: Reports as per HPI, Denies chills, Denies fever(s), Denies headache(s) and Denies night sweats Eyes: Eyes: Denies change in vision ENT: Denies Normal hearing present (has hearing aids) Cardiovascular: Cardiovascular: Denies chest pain and Denies dyspnea Respiratory: Respiratory: Denies hemoptysis, Denies pain on inspiration and Denies dyspnea Gastrointestinal: Gastrointestinal: Reports as per HPI, Denies abdominal pain and Denies dysphagia Genitourinary: Genitourinary: Reports as per HPI, Denies hematuria, Denies genital pain, Denies testicular pain and Denies urinary frequency Musculoskeletal: Musculoskeletal: Reports no additional musculoskeletal complaints Integumentary/Breasts: Skin/Breast: Reports system reviewed and no additional complaints, except as docu Neurologic: Reports system reviewed and no additional complaints, except as documented Psychiatric: Psychiatric: Reports no additional psychiatric complaints Endocrine: Endocrine: Reports no additional endocrine complaints Hematologic/Lymphatic: Hematologic/Lymphatic: Reports as per HPI (hx of DVT) Allergic/Immunologic: Allergic/Immunologic: Reports no additional allergic/immunologic complaints PMFSH Past Medical History Medical History
[2021-08-06] MEDS: TAMSULOSIN HCL 0.4 MG CAPSULE PO (09:04)
--- NOTE | 2021-08-06 13:17 | PM.SD2 ---
Same Day Admit/Disch: HPI History of Present Illness Chief complaint: left kidney stone, flank pain intractable Narrative: Glen Saucedo is a 46 year old male with a history of Chiari malformation s/p brain surgery, PE/DVT X2 on Xarelto, diverticulitis, CAHNI who presented to the ER for uncontrolled left flank pain. The patient states he woke up at 12:30 a.m. on 08/05/2021 with increased sharp stabbing pain to his left flank with radiation to left lower quadrant with associated pain and trouble with urination. He had never had similar symptoms before but did have a history of perforated ulcer of his abdomen and was concerned so he came to the ER for further evaluation. He was seen in the emergency room and found to have a 4.5 x 6 mm left ureteral calculus associated mild proximal left hydroureter nephrosis. He was given IV fluids and IV pain meds with improvement of his symptoms and he was discharged home with prescriptions for amoxicillin, tamsulosin, Percocet and Zofran. Patient states he was at home and continued to have uncontrolled pain despite medications and decided to come back for further evaluation. Initial vitals showed stable blood pressure, heart rate, afebrile, normal oxygenation on room air. Initial labs showed leukocytosis at 12,500, elevated neutrophils at 80%, normal BMP other than slightly elevated glucose at 134. Urinalysis showed cloudy urine with 3+ blood, greater than 75 WBCs. He was started on IV Rocephin, IV fluid hydration, IV pain control and antiemetics and admitted into the hospital for observation with a urology consultation. The patient states overnight he had good pain control with IV medications. He did urinate and it is much easier, more clear and less painful. He did urinate at sometime overnight and had some sediment in the strainer and he is unsure if he passed a kidney stone or not. This morning he is feeling well with only minimal discomfort at this time. He was able to eat and drink without any issues and Tylenol for pain. He was seen by the urologist Dr. Ceron who talked with the patient and they agreed to treat this conservatively. He said the patient could be discharged to continue same medications that were prescribed from the emergency room in addition to Toradol NSAID for pain and inflammation. I told the patient as well as the urologist the risks of taking Toradol with his Xarelev which could include abnormal bleeding. I told him not take this medication unless his oral [place] and Tylenol was not working. He understands the risks of this medication. I told him with any abnormal bleeding or severe worsening pain to come back to the emergency room for further workup and evaluation. The patient feels comfortable discharge at this time to continue taking medications, follow-up with his PCP in 1 week, talked to the urologist if he is having any more issues or kidney stone issues. Return to ER warnings given. The patient understands agrees the plan all questions answered. PMFSH Past Medical History Medical History Anxiety Chiari malformation Diverticulitis DVT (deep venous thrombosis) Obesity CHANI (obstructive sleep apnea) Pulmonary emboli Surgical History Surgical History H/O brain surgery Chiari malformation repair H/O colonoscopy Family History Family History Unknown Cancer Social History Social History Smoking status: Never smoker Second hand tobacco smoke exposure: No Alcohol intake: never Drinks per week: 0 Alcohol use details: very infrequent Substance use: unknown Substance use type: does not use Gender identity (if verbalized by the patient): Male Spiritual care concerns: No Same Day
== END 2021-08-06 14:10 | disposition home or self-care (01) ==
LOC: ANHED 08-06 01:10 → ANH3MEDSUR 08-06 03:18
PROVIDERS: Admitting Provider Internal Medicine; Emergency Provider Emergency Medicine; PCP Physician Assistant; Visit Provider Internal Medicine
DX: N13.2 Hydronephrosis with renal and ureteral calculous obstruction (principal); F41.9 Anxiety disorder, unspecified; K57.30 Diverticulosis of large intestine without perforation or abscess without bleeding; G47.33 Obstructive sleep apnea (adult) (pediatric); Z86.711 Personal history of pulmonary embolism; Z79.01 Long term (current) use of anticoagulants; Z86.718 Personal history of other venous thrombosis and embolism; Z20.822 Contact with and (suspected) exposure to COVID-19
CPT/HCPCS: 36415; 80048; 81001; 85025; 87086; 87426; 96361; 96365; 96367; 96374; 96375; 96376; 99285; A9270; C9803; G0378; J0131; J0696; J2270; J2405; J7030

== ENCOUNTER 2021-08-10 11:14 | Outpatient (CLI) | payer OTHER, SELFPAY ==
--- NOTE | ~2021-08-10 | XR_ITS ---
XR abdomen/kub 1V 08/10/2021 11:33 INDICATION: Kidney stones TECHNIQUE: KUB COMPARISON: 08/05/2021 FINDINGS: Bowel gas pattern is normal. There is no evidence of free air, mass, organomegaly, ascites or obstruction. No abnormal calculi are seen. Calcifications in the pelvis are believed to be phleb oliths. The bones appear intact. IMPRESSION: 1: No acute abdominal abnormality identified. Reviewed, dictated and finalized at location [facility]. COLLECTOR
== END 2021-08-10 11:15 | disposition home or self-care (01) ==
LOC: ANHIMG 11:18
PROVIDERS: PCP Physician Assistant; Visit Provider Urology
DX: N20.0 Calculus of kidney (principal)
CPT/HCPCS: 74018

== ENCOUNTER 2021-12-21 09:34 | Outpatient (CLI) | payer OTHER, SELFPAY ==
--- NOTE | ~2021-12-21 | US_ITS ---
EXAMINATION: US venous doppler [facility] DATE: 12/21/2021 10:03 INDICATION: Left lower limb swelling. TECHNIQUE: Grayscale ultrasound images without and with compression and Doppler ultrasound images of the left lower extremity veins were obtained. COMPARISON: Ultrasound 01/24/2020 FINDINGS: The visualized portions of left common femoral vein, profunda (deep) femoral vein, femoral vein, and greater saphenous vein outflow are patent. There is thrombus in the left popliteal vein and posterior tibial and peroneal veins. IMPRESSION: 1. Deep vein thrombosis involving the left popliteal vein and posterior tibial and peroneal veins. Reviewed, dictated and finalized at location [facility].
== END 2021-12-21 09:35 | disposition home or self-care (01) ==
PROVIDERS: PCP Physician Assistant; Visit Provider Physician Assistant
DX: R22.42 Localized swelling, mass and lump, left lower limb (principal); I82.432 Acute embolism and thrombosis of left popliteal vein; I82.442 Acute embolism and thrombosis of left tibial vein; I82.452 Acute embolism and thrombosis of left peroneal vein
CPT/HCPCS: 93971

== ENCOUNTER 2022-03-15 01:42 | Day surgery (SDC) | payer OTHER, SELFPAY ==
[2022-03-03 15:42] VITALS: BMI 34.5
--- NOTE | 2022-03-15 08:08 | P.PNAN_ITS ---
Anes - Initial Pre Proc Eval Procedure: Operation Date: 03/15/22 10:15 Proposed Procedures p Colonoscopy - Jose Hall MD Date/Time: 03/15/22 08:08 Surgeon: Jose Hall MD Pre Op Diagnosis: change in bowel habits Patient Data Age: 46 Gender: M Height: 1.92 m Weight: 127 kg Allergies Allergy/AdvReac Type Severity Reaction Status Date / Time No Known Allergies Allergy Verified 03/03/22 15:45 Home Medications Medication Instructions Recorded Confirmed Type rivaroxaban 20 mg tablet (Xarelto) 20 mg PO DAILY 08/05/21 03/03/22 History fluticasone propionate 50 2 spray intranasal BID #16 mL 08/08/21 03/03/22 Rx mcg/actuation nasal spray,suspension (Flonase Allergy Relief) polyethylene glycol 3350 17 17 g PO BID 03/03/22 03/03/22 History gram/dose oral powder (Miralax) Patient hx anesthesia problems: none Family hx anesthesia problems: none Results Review: All pre-operative results and documents have been reviewed as part of the pre- operative evaluation. [facility] Past Medical History Medical History (Updated 03/15/22 @ 08:12 by Reyes Sagastume MD) Anxiety Asthma Chiari malformation Chronic anticoagulation Diverticulitis DVT (deep venous thrombosis) Hx of diverticulitis of colon Obesity CHANI (obstructive sleep apnea) Pulmonary emboli Surgical History Surgical History H/O brain surgery Chiari malformation repair H/O colonoscopy Family History Family History Unknown Cancer Social History Social History Smoking status: Never smoker Second hand tobacco smoke exposure: No Alcohol intake: current Drinks per week: 0 Alcohol use details: very infrequent Substance use: never Substance use type: does not use Living arrangements: with family Gender identity (if verbalized by the patient): Male Spiritual care concerns: No Anes - Eval Final PreProcedure Day of Procedure 03/15/22 08:08 Patient weight: obese Heart: regular rate and rhythm Lungs: clear to auscultation Airway: Mallampati scale class II Neurological: alert and oriented Last oral intake: >/= 8 hours ASA classification: III Emergent: no Anesthetic plan: proceed Anesthesia type and monitoring: general GIVS and standard monitoring Results Review: All pre-operative results and documents have been reviewed as part of the pre- operative evaluation. Informed Consent: The patient's anesthetic plan and its attendant risks and benefits were discussed with the patient/family/POA. Questions were solicited and answers provided to the satisfaction of the patient/family/POA.
[2022-03-15 09:02] VITALS: BP 135/72; PULSE 71; RESP 18; TEMP 36.3; O2SAT 97; BMI 36.3
[2022-03-15] MEDS: LACTATED RINGERS 1,000 ML 150 ML IV CONT (09:12)
--- NOTE | 2022-03-15 09:57 | PM.HPGS ---
History of Present Illness History of Present Illness Consent: Risks, benefits, and alternatives have been discussed and questions answered. Patient agrees to proceed with procedure. Chief complaint: change in bowel habits Narrative: Glen Saucedo is a 46 year old male with previous episode of diverticulitis and more constipation lately Review of Systems Constitutional: Constitutional: Denies headache(s) and Denies weakness Eyes: Eyes: Denies blurry vision ENT: Reports Normal hearing present, Denies headache(s) and Denies neck pain Cardiovascular: Cardiovascular: Denies chest pain and Denies dyspnea Respiratory: Respiratory: Denies dyspnea Gastrointestinal: Gastrointestinal: Reports no additional gastrointestinal complaints Genitourinary: Genitourinary: Denies dysuria Musculoskeletal: Musculoskeletal: Denies neck pain Integumentary/Breasts: Skin/Breast: Denies dry skin Neurologic: Reports Normal hearing present, Denies headache(s) and Denies weakness Psychiatric: Psychiatric: Denies anxiety Endocrine: Endocrine: Denies change in body appearance Hematologic/Lymphatic: Hematologic/Lymphatic: Denies easy bleeding Allergic/Immunologic: Allergic/Immunologic: Denies urticaria PMFSH Past Medical History Medical History (Updated 03/15/22 @ 08:12 by Reyes Sagastume MD) Anxiety Asthma Chiari malformation Chronic anticoagulation Diverticulitis DVT (deep venous thrombosis) Hx of diverticulitis of colon Obesity CHANI (obstructive sleep apnea) Pulmonary emboli Surgical History Surgical History H/O brain surgery Chiari malformation repair H/O colonoscopy Family History Family History Unknown Cancer Social History Social History Smoking status: Never smoker Second hand tobacco smoke exposure: No Alcohol intake: current Drinks per week: 0 Alcohol use details: very infrequent Substance use: never Substance use type: does not use Living arrangements: with family Gender identity (if verbalized by the patient): Male Spiritual care concerns: No Meds Home Medications and Allergies Home Medications Medication Instructions Recorded Confirmed Type rivaroxaban 20 mg tablet (Xarelto) 20 mg PO DAILY 08/05/21 03/03/22 History fluticasone propionate 50 2 spray intranasal BID #16 mL 08/08/21 03/03/22 Rx mcg/actuation nasal spray,suspension (Flonase Allergy Relief) polyethylene glycol 3350 17 17 g PO BID 03/03/22 03/03/22 History gram/dose oral powder (Miralax) Allergies Allergy/AdvReac Type Severity Reaction Status Date / Time No Known Allergies Allergy Verified 03/03/22 15:45 Vital Signs Vital Signs - 24 hr 03/15/22 09:02 Temperature 97.4 F L Pulse Rate 71 Respiratory Rate 18 Blood Pressure 135/72 Pulse Oximetry 97 Oxygen Delivery Room Air Exam Const: General: comfortable and no acute distress HENMT: General nose exam: Normal nares present Eyes: General: appearance normal, both eyes and all related structures Neck: Neck: no JVD Resp: Auscultation: clear to auscultation bilaterally Cardio: Rate: regular rate Rhythm: regular rhythm GI: Inspection: non-distended GI Palp: Yes Soft to palpation Skin: General skin exam: normal color Neuro: General: gait normal Speech: normal speech Extrem: General: normal to inspection Psych: Mental Status: mental status grossly normal Assessment and Plan Assessment and plan (1) Hx of diverticulitis of colon: Code(s): Z87.19 - Personal history of other diseases of the digestive system Status: Acute Assessment and Plan: colonoscopy
[2022-03-15 09:59] VITALS: BP 113/65; PULSE 61; RESP 21; O2SAT 95
[2022-03-15 10:09] VITALS: BP 125/77; PULSE 74; RESP 20; O2SAT 97
[2022-03-15 10:19] VITALS: BP 124/79; PULSE 61; RESP 22; O2SAT 100
== END 2022-03-15 10:44 | disposition home or self-care (01) ==
PROVIDERS: PCP Physician Assistant; Visit Provider Internal Medicine Gastroenterology
PROC: 0DJD8ZZ Inspection of Lower Intestinal Tract, Via Natural or Artificial Opening Endoscopic (ICD-10-PCS; CPT 45378; principal; 2022-03-15 10:15)
DX: Z12.11 Encounter for screening for malignant neoplasm of colon (principal); K57.32 Diverticulitis of large intestine without perforation or abscess without bleeding; R19.4 Change in bowel habit; K57.30 Diverticulosis of large intestine without perforation or abscess without bleeding; K64.8 Other hemorrhoids; F41.9 Anxiety disorder, unspecified; J45.909 Unspecified asthma, uncomplicated; G47.33 Obstructive sleep apnea (adult) (pediatric); Z86.711 Personal history of pulmonary embolism; Z79.01 Long term (current) use of anticoagulants; Z86.73 Personal history of transient ischemic attack (TIA), and cerebral infarction without residual deficits; Z87.19 Personal history of other diseases of the digestive system; E66.9 Obesity, unspecified; Z68.36 Body mass index [BMI] 36.0-36.9, adult
CPT/HCPCS: 45378; J2704; J7120

== ENCOUNTER 2024-02-21 09:15 | Outpatient (CLI) | payer OTHER, SELFPAY ==
--- NOTE | ~2024-02-21 | XR_ITS ---
Cervical Spine: AP, lateral, open-mouth views Clinical History: Pain Findings: There is reversal of the normal cervical lordosis. No fracture or subluxation seen. There i s moderate degenerative disc narrowing at C4-C5 and C5-C6. Minimal facet arthropathy present. Pre-pedro tebral soft tissues are unremarkable. Impression: Mild degenerative spondylosis, as above. Reviewed, dictated and finalized at location . Impression: Mild degenerative spondylosis, as above.
--- NOTE | ~2024-02-21 | XR_ITS ---
Left Shoulder Technique: AP and axillary views were obtained. Clinical History: Pain Findings: No fracture or dislocation is seen. Osseous alignment is anatomic. The glenohumeral and acr omioclavicular joint spaces are preserved. Soft tissues are unremarkable. Impression: Unremarkable left shoulder radiographs. Reviewed, dictated and finalized at [facility]. Impression: Unremarkable left shoulder radiographs.
== END 2024-02-21 09:16 ==
PROVIDERS: PCP Internal Medicine; Visit Provider Nurse Practitioner
DX: M25.512 Pain in left shoulder (principal); M47.892 Other spondylosis, cervical region
CPT/HCPCS: 72050; 73030

== ENCOUNTER 2024-11-24 08:18 | Emergency (ER) | payer BC, SELFPAY ==
[2024-11-24 08:38] VITALS: BP 127/80; PULSE 83; RESP 16; TEMP 36.7; O2SAT 98
--- NOTE | 2024-11-24 08:58 | ED.SKABFB ---
HPI - Skin/Abscess/Foreign Bdy General Chief complaint: Skin/Abscess/Foreign Body Stated complaint: SPOT ON LOWER L LEG Time Seen by Provider: 11/24/24 08:59 Source: patient Mode of arrival: ambulatory Limitations: no limitations History of Present Illness HPI narrative: 49-year-old male with history of DVT presented for complaint of a wound to the left lower leg. He states he has had a blister to the for at least one week, which ruptured about 2 days ago. Has been applying Neosporin to the site and occasionally applies a dressing to the site. Denies nausea, vomiting, diarrhea, fevers or chills. Denies any other skin concerns. He states he has had a blister in the past and was treated with silver cream. Also reports left lower leg swells at times and has been for a few days; denies leg or calf pain. Related Data Home Medications ?Medication ?Instructions ?Recorded ?Confirmed ?Last Taken ?Type polyethylene glycol 3350 17 17 g PO BID 03/03/22 02/21/24 Unknown History gram/dose oral powder (Miralax) Allergies Allergy/AdvReac Type Severity Reaction Status Date / Time No Known Allergies Allergy Verified 02/21/24 08:24 Review of Systems Review of Systems: CONSTITUTIONAL: Denies body aches, fever, chills, or sweats. EYES: Denies visual changes, redness, or discharge. ENT: Denies rhinorrhea, congestion CARDIOVASCULAR: Denies chest pain, palpitations, or edema. RESPIRATORY: Denies cough or dyspnea. GASTROINTESTINAL: Denies abdominal pain, nausea, vomiting, or diarrhea. SKIN: Per HPI MUSCULOSKELETAL: Denies back pain, joint pain, or myalgia. NEUROLOGIC: Denies headache, numbness, tingling, or weakness. [facility] Past Medical History Medical History Anxiety Asthma Chiari malformation Chronic anticoagulation Diverticulitis DVT (deep venous thrombosis) Hx of diverticulitis of colon Obesity CHANI (obstructive sleep apnea) Pulmonary emboli Surgical History Surgical History H/O brain surgery Chiari malformation repair H/O colonoscopy H/O rotator cuff surgery Family History Family History Unknown Cancer Father Waldenstrom's disease Diabetes mellitus Mother Hypothyroidism Social History Social History Smoking status: Never smoker Second hand tobacco smoke exposure: No Alcohol intake: current Drinks per week: 0 Alcohol use details: very infrequent Substance use: never Substance use type: does not use Do You Feel Safe in your Home?: Yes Lack of Transportation: No Lack of Food: Never True Current Housing: I Have Housing Concerned About Future Housing: No Difficulty Paying Gas/Electric Bills: No Difficulty Paying for Meds: No Currently Unemployed: No Education: Master's Degree or Higher Difficulty w/ Childcare or Family Care: No Living arrangements: with family Gender identity (if verbalized by the patient): Male Spiritual care concerns: No Comments At time of signature, I have reviewed and agree with nursing past medical, surgical, social and family history unless otherwise noted. Please see nursing chart for further information. There is no relevant family history pertinent to the presenting complaint Exam Narrative: GENERAL: Well-appearing ENT: Mucous membranes moist. CHEST: Clear to auscultation. HEART: Regular rate and rhythm. SKIN: Warm, dry. Left posterior lower leg with ruptured blister [id number], surrounding erythema 11cm diameter. Nontender. Erythema is not circumferential. EXT: LLE with 2+ pitting edema. Pedal pulses weak bilaterally. NEURO: Alert and oriented x3. Course Course Emergency Course: Patient is aware of diagnosis, understands and agrees to treatment plan. Anticipatory guidance given. Patient agrees to follow-up as directed and is aware of reasons to seek care at the emergency department. Portions of this record may have been created with voice recognition software Level of Care: Express Care Visit Vital Signs Vital signs: Vital Signs Temperature 98.1 F 11/24/24 08:38 Pulse Rate 83 11/24/24 08:38 Respiratory Rate 16 11/24/24 08:38 Blood Pressure 127/80 11/24/24 08:38 Pulse Oximetry 98 11/24/24 08:38 Temperature 98.1 F 11/24/24 08:38 Pulse Rate 83 11/24/24 08:38 Respiratory Rate 16 11/24/24 08:38 Blood Pressure 127/80 11/24/24 08:38 Pulse Oximetry 98 11/24/24 08:38 Reviewed MDM - Skin/Abscess/Foreign Bdy MDM Narrative Medical decision making narrative: Discussed physical exam findings c/w cellulitis, Reviewed rx and wound management. Advised close f/u with pcp. Advised supportive measures and signs/symptoms to go to the ER. Pt is appropriate for outpt treatment and f/u. Differential Diagnosis Differential diagnosis: Likely abscess of skin or subcutaneous tissue, viral exanthem, dermatophytosis, urticaria, herpes zoster, cellulitis, eczema, insect bites, impetigo and contact dermatitis Discharge Plan Discharge Clinical Impression: Cellulitis Patient Disposition: Home Condition: Stable Instructions: Antibiotic Form, Cellulitis (ED) Additional Instructions: Keep the area clean and dry - cleanse with warm water and mild soap (or wound cleanser spray) and allow to fully dry. Apply ointment and take antibiotic as directed Keep it open to air to help the skin dry out (no bandages whenever possible if the wound is not draining) Keep the leg elevated to help reduce swelling. Watch for worsening symptoms including pain, redness, swelling, streaking, pus/drainage, fever. Go to the ER with any of these symptoms or concerns. Follow up with primary care provider in 1 week as needed. Patient Language: Kinyarwanda Prescriptions: New cephalexin 500 mg capsule 500 mg PO Q6H 7 Days Qty: 28 0RF mupirocin 2 % ointment 1 applic topical BID 7 Days Qty: 22 0RF No Action polyethylene glycol 3350 [Miralax] 17 gram/dose Powder 17 g PO BID fluticasone propionate 50 mcg/actuation spray,suspension See Rx Instructions .ROUTE .COMPLEX Qty: 16 3RF Dose Instruction: SHAKE LIQUID AND USE 2 SPRAYS IN EACH NOSTRIL TWICE DAILY Rx Instructions: SHAKE LIQUID AND USE 2 SPRAYS IN EACH NOSTRIL TWICE DAILY Xarelto 20 mg tablet 20 mg PO DAILY Qty: 90 1RF Follow-up/Referrals: Roseline Funes NP [Primary Care Provider] - Time of Disposition: 09:02
== END 2024-11-24 09:15 | disposition home or self-care (01) ==
PROVIDERS: Emergency Provider Nurse Practitioner Family; PCP Nurse Practitioner
DX: L03.116 Cellulitis of left lower limb (principal); J45.909 Unspecified asthma, uncomplicated; E66.9 Obesity, unspecified; Z68.35 Body mass index [BMI] 35.0-35.9, adult; Z86.711 Personal history of pulmonary embolism; Z86.718 Personal history of other venous thrombosis and embolism; Z79.01 Long term (current) use of anticoagulants
CPT/HCPCS: 99213; G0463

== ENCOUNTER 2025-01-22 09:16 | Outpatient (CLI) | payer BC, SELFPAY ==
--- NOTE | ~2025-01-22 | US_ITS ---
Ankle Brachial Index with Ultrasound Dopplers and Pulse Volume Recordings Technique: Pressures in the arm and lower extremity were obtained. Additionally, arterial and pulse v olume waveforms were obtained bilaterally. Findings: Segmental pressures Right posterior tibial: 165 Right dorsalis pedis: 152 Left posterior tibial: 153 Left dorsalis pedis: 143 There are triphasic waveforms bilaterally. 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 Reviewed, dictated and finalized at location A. Impression: No ultrasound evidence to suggest the presence of peripheral vascul ar disease causing patient's left lower extremity paresthesias.
--- OUTSIDE RECORDS SUMMARY | 2025-01-22 09:25 | XMS_ITS | Clinical Summary ---
Author Organization [facility] Address [address] [place] [address] Care Team Providers Care Chiller Technician Name Role Phone Tigist Yeh Primary Care Pr ovider Allergies No known active allergies Medications PARoxetine (PAXIL) 20 mg tabletIndicatio ns:Anxiety with Depression Take 20 mg by mouth every morning 0 Active docusate sodium (COLACE) 100 mg capsuleIndicati ons:constipatio n Take 1 capsule (100 mg total) by mouth 2 (two) times a day as needed for constipation (while taking narcotics) 30 capsule 1 1 Active apixaban (ELIQUIS) 2.5 mg tablet Take 1 tablet (2.5 mg total) by mouth 2 (two) times a day for 28 days 56 tablet 1 Active Additional Information Patient taking differently: 15 mgoral 2 times daily, Reported on 01/25/2022 oxyCODONE (ROXICODONE) 5 mg immediate release tabletIndicatio ns:Pain 1-2 tablets q4-6 hours PRN pain 40 tablet 1 Active Additional Information Patient not taking.Reported on 01/25/2022 apixaban (ELIQUIS) 2.5 mg tablet Eliquis 2.5 mg tablet Active doxycycline 100 mg tablet TAKE 1 TABLET BY MOUTH TWICE DAILY FOR 21 DAYS 2 Active fluticasone propionate (FLONASE) 50 mcg/actuation nasal spray SHAKE LIQUID AND USE 2 SPRAYS IN EACH NOSTRIL TWICE DAILY 2 Active rivastigmine (EXELON) 4.5 mg capsule Take 4.5 mg by mouth 2 (two) times a day Active polyethylene glycol (MIRALAX) 17 gram packetIndicatio ns:constipation Take 17 g by mouth daily Active senna (SENOKOT) 8.6 mg tablet Take 1 tablet by mouth 2 (two) times a day as needed for constipation Active Active Problems Problem Noted Date Diagnosed Date DVT (deep venous thrombosis) 12/23/2021 Assessment & Plan (01/25/2022 10:32 AM CDT): History of 3 episodes of left lower extremity DVT and chronic swelling. 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 I have recommended compression therapy and lifelong anticoagulation. Can follow-up p.r.n.. Acute sinusitis 05/23/2021 Bronchitis 05/23/2021 Gastroenteritis 05/23/2021 Grade 1 ankle sprain 05/23/2021 Complete rupture of rotator cuff 02/03/2021 Overview (02/03/2021): Added automatically from request for surgery [id number] Dystrophia unguium 11/01/2020 Idiopathic peripheral neuropathy 11/01/2020 Pulmonary embolism 08/06/2020 Pulmonary embolism 02/02/2020 Anxiety 03/19/2019 Obstructive sleep apnea syndrome 10/28/2013 Overview (10/20/2016): CHANI (obstructive sleep apnea) Hearing loss 07/26/2012 Overview (10/18/2016): Hearing loss Overweight 07/26/2012 Overview (10/20/2016): Overweight Immunizations Immunization Administration Dates Next Due Hep B Vaccine 08/13/2020,03/30/2020,02/24/2020 Moderna SARS-CoV-2 Monovalen t Vaccination (12+ YRS) 07/29/2020 PPD TEST 02/23/2020,02/03/2020 Surgical History Surgery Date Site/Laterality Comments OTHER SURGICAL HISTORY 07/16/2004 - 07/15/2005 Rashid Shin malformation: Surgical repair COLONOSCOPY 07/16/2017 - 07/15/2018 Medical History Medical History Date Comments Hx Other Medical 2004 Rashid verdugo alformation; Outcome: improved Heart murmur 1991 Heart murmur; Ou tcome: free of disease Asthma 1980 Asthma; Outcome: childhood Anxiety Sleep apnea No CPAP, uses de ntal piece at night instead Pulmonary embolism (HCC) Family History Medical History Relation Name Comments Cancer Father Diabetes Father Diabetes mellit us; Lymphoma Other Heart attack Paternal Grandfather Myocard ial infarction; Cause of : Myocardial infarction Relation Name Status Comments Father Maternal Grandfather (Age 101y) Herart Dz--Type ? Other Paternal Grandfather (Age 60) [place] Social History Tobacco Use Types Packs/Day Years Used Date Smoking Tobacco: Never Smokeless Tobacco: Never Alcohol Use Standard Drinks/Week Comments Yes 0 (1 standard drink = 0.6 oz pur e alcohol) AUDIT-C Answer Date Recorded Q1: How often do you have a drink containing alc ohol? 2-4 times a month 02/08/2021 Q2: How many drinks containi ng alcohol do you have on a typical day when you are drinking? 1 or 2 02/08/2021 Q3: How often do you have si x or more drinks on one occasion? 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 Gender Identity Not on file Sexual Orientation Not on file Obstetrics History Last Filed Vital Signs Vital Sign Reading Time Taken Comments Blood Pressure 130/85 01/25/2022 9:14 AM CDT Pulse 65 01/25/2022 9:14 AM CDT Temperature 36.6 C (97.8 F) 01/04/2022 11:27 AM CDT Respiratory Rate 16 01/04/2022 11:27 AM CDT Oxygen Saturation 96% 01/04/2022 11:27 AM CDT Inhaled Oxygen Concentration - - Weight 127 kg (280 lb) 01/25/2022 9:14 AM CDT Height 190.5 cm (6' 3) 01/25/2022 9:14 AM CDT Body Mass Index 35 01/25/2022 9:14 AM CDT Plan of Treatment Health Maintenance Due Date Last Done Comments Colon Cancer Screening-Colonoscopy 1974 Depression Screening 1974 Hepatitis C Screening 1974 Prostate Cancer Screening-PSA 1974 DTaP/Tdap/Td Vaccine (1 - Tdap) 1985 Regular Well Visit/Exam 18-64 1992 Covid-19 Vaccine (3 - 2023-2 5 season) 2024 08/27/2020, 07/29/2020 Zoster Vaccine (1 of 2) 2024 Influenza Vaccine (Season Ended) 2025 Hepatitis B Screening Completed 08/13/2020 , 03/30/2020, 02/24/2020 Pneumococcal vaccine <65 Aged Out No longer eligible based on patient's age to complete this topic Medical Devices Implanted Type Area Receiving Teller Device Identifier Shelf Expiration Date Model / Serial / Lot [employer] [id number] Quattro Link 4.5mm 1 Row Knotless Self Punch Unique Eyelet [place] - [id number] Implanted:Qt y: 2 on 02/08/2021 by Miguel Ashton MD at [facility] Other - see comments [employer] 09/30/2025 [id number] / / [id number] [employer] [id number] [place] Suture Compositcp Broadband Od4.5mm 2 Load Slide Tape Knotless Thread - [id number] Implanted:Qt y: 1 on 02/08/2021 by Miguel Ashton MD at [facility] Right: Shoulder [employer] 04/15/2022 [id number] / / [id number] [employer] [id number] [place] Suture Compositcp Broadband Od4.5mm 2 Load Slide Tape Knotless Thread - [id number] Implanted:Qt y: 2 on 02/08/2021 by Miguel Ashton MD at [facility] Right: Shoulder [employer] 04/15/2022 [id number] / / [id number] [employer] [id number] Juggerknot Maxbraid 2.9mm 2 Loaded Soft Tapered Needle 2 [place] - [id number] Implanted:Qt y: 1 on 02/08/2021 by Miguel Ashton MD at [facility] [employer] [id number] 04/15/2025 [id number] / / [id number] Insurance [facility] Address: [place] [address] [place] [facility] Address: [place] [address] [place] [facility] Address: [facility] [address] [place] [address] Care Teams Chiller Technician Relationship Specialty Start Date End Date Tigist Yeh PA PCP - General Physician Torque Tester 02/11/20
--- OUTSIDE RECORDS SUMMARY | 2025-01-22 09:25 | XMS_ITS | Clinical Summary ---
Author Organization [facility] Address [address] [place] [address] Care Team Providers Care Rotary Driller Prospecting Name Role Phone Unavailable Primary Care Provider Unavailabl e Immunizations Immunization Administration Dates Next Due MODERNA COVID-19 (12+) MRNA, LNP-S, PF, 100 MCG/ 0.5 ML DOSE 08/27/2020,07/29/2020 Social History Tobacco Use Types Packs/Day Years Used Date Smoking Tobacco: Never Assessed Sex and Gender Information Value Date Recorded Sex Assigned at Not on file Legal Sex Male 9:54 PM CDT Gender Identity Not on file Sexual Orientation Not on file Plan of Treatment Health Maintenance Due Date Last Done Comments Colorectal Cancer Screening Colonoscopy (10 Years) 1974 Annual Physical 1977 Hepatitis C 1992 DTaP, Tdap and Td Vaccines ( 1 - Tdap) 1993 Hepatitis B Vaccines (1 of 3 - 19+ 3-dose series) 1993 COVID-19 Vaccine (3 - 2023-2 5 season) 2024 08/27/2020, 07/29/2020 Pneumococcal Vaccine: 50+ Years (1 of 1 - PCV) 2024 Zoster Vaccines (1 of 2) 2024 Meningococcal B Vaccine Aged Out No l onger eligible based on patient's age to complete this topic Meningococcal Vaccine Aged Out No josh sherie eligible based on patient's age to complete this topic RSV Immunizations Under 20 Months Aged Out No longer eligible b ased on patient's age to complete this topic
--- OUTSIDE RECORDS SUMMARY | 2025-01-22 09:25 | XMS_ITS | Referral Summary ---
Author Organization [facility] Address [address] [place] [address] Care Team Providers Care Poultry Hatchery Manager Name Role Phone Tigist Yeh Primary Care [...] (02/03/2021): Added automatically from request for surgery [id number] Dystrophia unguium 11/01/2020 Idiopathic peripheral neuropathy 11/01/2020 Pulmonary embolism 08/06/2020 Pulmonary embolism 02/02/2020 Anxiety 03/19/2019 Obstructive sleep apnea syndrome 10/28/2013 Overview (10/20/2016): CHANI (obstructive sleep apnea) Hearing loss 07/26/2012 Overview (10/18/2016): Hearing loss Overweight 07/26/2012 Overview (10/20/2016): Overweight Immunizations Immunization Administration Dates Next Due Hep B Vaccine 08/13/2020,03/30/2020,02/24/2020 Moderna SARS-CoV-2 Monovalen t Vaccination (12+ YRS) 07/29/2020 PPD TEST 02/23/2020,02/03/2020 Social History Tobacco Use Types Packs/Day Years [...] on file 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 Gender Identity Not on file Sexual Orientation Not on file Last Filed Vital Signs Vital Sign Reading [...] 01/25/2022 9:14 AM CDT Plan of Treatment Not on file Medical Devices Implanted Type Area Talent Consultant Device Identifier Shelf Expiration Date Model / Serial / Lot [employer] [id number] Quattro Link 4.5mm 1 Row Knotless Self Punch Unique Eyelet [place] - [id number] Implanted:Qt y: 2 on 02/08/2021 by Miguel Ashton MD at [facility] Other - see comments [employer] 09/30/2025 [id number] / / [id number] [employer] [id number] [place] Suture Compositcp Broadband Od4.5mm 2 Load Slide Tape Knotless [place] - [id number] Implanted:Qt y: 1 on 02/08/2021 by Miguel Ashton MD at [facility] Right: Shoulder [employer] 04/15/2022 [id number] / / [id number] [employer] [id number] [place] Suture Compositcp Broadband Od4.5mm 2 Load Slide Tape Knotless Thread - [id number] Implanted:Qt y: 2 on 02/08/2021 by Miguel Ashton MD at [facility] Right: Shoulder [employer] 04/15/2022 [id number] / / [id number] [employer] [id number] J[employer] Maxbraid 2.9mm 2 Loaded Soft Tapered Needle 2 [place] - [id number] Implanted:Qt y: 1 on 02/08/2021 by Miguel Ashton MD at [facility] [employer] [id number] 04/15/2025 [id number] / / [id number] Insurance [facility] Care Teams Poultry Hatchery Manager Relationship Specialty Start Date End Date Tigist Yeh PA PCP - General Physician Blind Eyeletter 02/11/20
== END 2025-01-22 09:17 | disposition home or self-care (01) ==
PROVIDERS: PCP Internal Medicine; Visit Provider Nurse Practitioner
DX: M79.89 Other specified soft tissue disorders (principal); M79.605 Pain in left leg; I73.9 Peripheral vascular disease, unspecified
CPT/HCPCS: 93922

== ENCOUNTER 2025-04-06 09:32 | Emergency (ER) | payer BC, SELFPAY ==
[2025-04-06 09:39] VITALS: BP 130/76; PULSE 85; RESP 16; TEMP 36.4; O2SAT 97
--- NOTE | 2025-04-06 10:04 | ED_ITS ---
HPI - URI/Sore Throat General Chief Complaint: Upper Respiratory Infection Stated Complaint: Cold/congestion 3 weeks Time Seen by Provider: 04/06/25 10:06 Source: patient, RN notes reviewed and old records reviewed Mode of arrival: ambulatory Limitations: no limitations History of Present Illness HPI Narrative: 50-year-old male presents to the [facility] with 3 weeks of cough, sinus congestion. Has taking [id number] day and nighttime sinus can not medicine. Has taken Claritin. Denies any sore throat fevers or significant pain. States that his ear started feeling pressure on Sunday after being on a plane ride, returned yesterday Related Data Home Medications ?Medication ?Instructions ?Recorded ?Confirmed ?Last Taken ?Type polyethylene glycol 3350 17 17 g PO BID 03/03/2204/06 Unknown History gram/dose oral powder (Miralax) Allergies Allergy/AdvReac Type Severity Reaction Status Date / Time No Known Allergies Allergy Verified 04/06/25 09:42 Review of Systems Review of Systems: All systems reviewed & are unremarkable except as noted in HPI and below Constitutional: Constitutional: Reports no additional constitutional complaints ENT: Reports as per HPI, Reports otalgia, Reports sinus pain and Reports sinus pressure Cardiovascular: Cardiovascular: Reports no additional cardiovascular complaints, Denies chest pain and Denies dyspnea Respiratory: Respiratory: Reports as per HPI, Denies chest congestion, Reports cough and Denies dyspnea Musculoskeletal: Musculoskeletal: Reports no additional musculoskeletal complaints Integumentary/Breasts: Skin/Breast: Reports system reviewed and no additional complaints, except as docu PMFSH Past Medical History Medical History Asthma Hx of diverticulitis of colon Chronic anticoagulation DVT (deep venous thrombosis) Pulmonary emboli Diverticulitis Chiari malformation Obesity CHANI (obstructive sleep apnea) Anxiety Surgical History Surgical History H/O rotator cuff surgery H/O colonoscopy H/O brain surgery Chiari malformation repair Family History Family History Unknown Cancer Father Waldenstrom's disease Diabetes mellitus Mother Hypothyroidism Social History Social History Smoking status: Never smoker Second hand tobacco smoke exposure: No Alcohol intake: current Drinks per week: 0 Alcohol use details: very infrequent Substance use: never Substance use type: does not use Do You Feel Safe in your Home?: Yes Lack of Transportation: No Lack of Food: Never True Current Housing: I Have Housing Concerned About Future Housing: No Difficulty Paying Gas/Electric Bills: No Difficulty Paying for Meds: No Currently Unemployed: No Education: Master's Degree or Higher Difficulty w/ Childcare or Family Care: No Living arrangements: with family Gender identity (if verbalized by the patient): Male Spiritual care concerns: No Comments At the time of my signature, I reviewed and agree with the nursing past medical, surgical, social, and family history. There is no relevant family history pertinent to the patient complaint. Exam Const: General: cooperative, healthy appearing, comfortable, no acute distress, well developed, alert and well nourished Nutritional Appearance: well nourished and obese Orientation/consciousness: patient oriented x3 Limitations: no limitations HENMT: Head: normal to inspection Ears: hearing grossly normal bilaterally, external ears normal, EAC's normal, mastoids normal, no periauricular adenopathy and TM abnormal bulging bilateral and with fluid behind the TM bilateral Mouth: Yes Normal oral and palatal mucosa present, Yes lip normal, Yes tongue normal and Yes moist mucous membranes Throat: posterior oropharynx normal, uvula midline and no uvular edema Eyes: General: appearance normal, both eyes and all related structures Alignment and Position: alignment normal Neck: Neck: normal visual inspection, full ROM, no lymphadenopathy and no meningeal signs Chest: Chest palpation & inspection: normal inspection of the chest Resp: Effort & Inspection: normal respiratory effort and able to speak in complete sentences Auscultation: clear to auscultation bilaterally, no crackles, no rales, no rhonchi and no wheezes Cardio: Rate: regular rate Skin: General skin exam: normal color and no rashes or lesions noted Neuro: General: patient oriented x3, gait normal, moves all extremities and no meningeal signs Cognition (Neuro): normal cognition Speech: normal speech Gait exam (Neuro): Normal gait present Extrem: General: normal to inspection, full ROM, capillary refill normal and normal gait Psych: Appearance: grossly normal and well kempt Mental Status: mental status grossly normal Speech and movement: Normal speech and movement present and Clear speech present Affect: normal affect Attitude: cooperative Course Course Level of Care: Express Care Visit Vital Signs Vital signs: Vital Signs Temperature 97.5 F L 04/06/25 09:39 Pulse Rate 85 04/06/25 09:39 Respiratory Rate 16 04/06/25 09:39 Blood Pressure 130/76 04/06/25 09:39 Pulse Oximetry 97 04/06/25 09:39 Oxygen Delivery Room Air 04/06/25 09:39 Temperature 97.5 F L 04/06/25 09:39 Pulse Rate 85 04/06/25 09:39 Respiratory Rate 16 04/06/25 09:39 Blood Pressure 130/76 04/06/25 09:39 Pulse Oximetry 97 04/06/25 09:39 Oxygen Delivery Room Air 04/06/25 09:39 Reviewed MDM - URI/Sore Throat MDM Narrative Medical decision making narrative: Patient sitting in exam room. Patient is vitals stable. Patient presents with weeks of sinus congestion, worse since Sunday. Patient appropriate outpatient treatment of sinusitis with antibiotics, Flonase and a Medrol Dosepak. Encouraged following up. Discharge instructions reviewed with patient, as well as provided in writing per nursing staff. The instructions also include specific and strict return/GO TO THE ER as well as f/u information. All questions have been answered, and the patient deny any further questions with discharge and discharge plan. Some parts of this dictation were generated by voice recognition software and may contain typographical and/or grammatical inaccuracies. Differential Diagnosis Differential diagnosis: Likely upper respiratory infection, otitis media, sinusitis, viral infection, bronchitis, influenza and pharyngitis Critical Care Time Critical Care Time Critical Care Time: No Discharge Plan Discharge Clinical Impression: Sinusitis, Acute serous otitis media, bilateral, Bronchitis Patient Disposition: Home Condition: Stable Instructions: Antibiotic Form, Sinusitis (ED), Acute Bronchitis (ED), Fluid In The Ear (Serous Otitis Media) (ED) Additional Instructions: It is very important to treat your symptoms. Drink plenty of water, Gatorade, Pedialyte, ice pops or Jell-O. -Alternate Tylenol and Motrin per package directions for fever or pain. You can alternate every 4 hours -Antihistamine medication such as Zyrtec/Claritin/Ammy during the day can help improve symptoms. -doing daily nasal irrigations can help relieve pressure your sinuses. Things like a Neti pot -Use Flonase twice a day for 5 days then daily to help reduce the inflammation and dry up your sinuses. -You can also use Mucinex. Be sure to drink plenty of water with this medication at least 8 ounces with every dose and it is important to drink 8 to 10 glasses of water per day. Water is a natural decongestant -Eat and drink things that are easy to swallow, like tea or soup, or popsicles. -Oral rinses such as: Salt water gargles and/or may use topical anesthetic (eg. Chloraseptic spray) or lozenges to relieve dryness or throat pain). -Frequent hand washing or hand automobile parts assembler is one of the best ways to prevent spread of infection. -Using a vaporizer or humidifier at night will also help thin secretions and help with coughing up phlegm. -Follow up with primary care provider in 7-10 days if condition is not improving - For new or worsening symptoms go directly to the nearest ER Patient Language: Citizen Of [place] Prescriptions: New amoxicillin-pot clavulanate 875-125 mg tablet 1 tablet PO Q12H Qty: 20 0RF methylprednisolone [Medrol (Wang)] 4 mg tablets,dose pack See Rx Instructions PO .COMPLEX Qty: 21 0RF Rx Instructions: orally per package directions fluticasone propionate [Flonase Allergy Relief] 50 mcg/actuation spray,suspension 2 spray intranasal DAILY Qty: 16 0RF Rx Instructions: administer into each nostril No Action polyethylene glycol 3350 [Miralax] 17 gram/dose Powder 17 g PO BID Xarelto 20 mg tablet 20 mg PO DAILY Qty: 90 1RF Follow-up/Referrals: Dionicio Land MD [Physician, Ear, Nose, Throat] Bartolo Whitmore DO [Primary Care Provider, Internal Medicine] - 1 Week Stand Alone Forms: Work/School Release IP Time of Disposition: 10:34
== END 2025-04-06 10:48 | disposition home or self-care (01) ==
PROVIDERS: Emergency Provider Nurse Practitioner; PCP Internal Medicine
DX: J32.9 Chronic sinusitis, unspecified (principal); H65.03 Acute serous otitis media, bilateral; J40 Bronchitis, not specified as acute or chronic; J45.909 Unspecified asthma, uncomplicated; E66.9 Obesity, unspecified; Z68.35 Body mass index [BMI] 35.0-35.9, adult; Q07.00 Arnold-Chiari syndrome without spina bifida or hydrocephalus; Z86.718 Personal history of other venous thrombosis and embolism; Z86.711 Personal history of pulmonary embolism; Z79.01 Long term (current) use of anticoagulants
CPT/HCPCS: 99213; G0463

== ENCOUNTER 2025-04-24 08:12 | Outpatient (CLI) | payer BC, SELFPAY ==
--- NOTE | ~2025-04-24 | XR_ITS ---
EXAMINATION: XR ribs BI 3V w CXR 2V, 04/24/2025 8:25 CDT HISTORY: R05.9 - Cough, unspecified, WORSENING COMPARISON: No comparisons available. Findings: No acute fracture or malalignment. No significant degenerative changes. Soft tissues unremarkable. Impression: No acute fracture or malalignment. Reviewed, dictated and finalized at location P. Impression: No acute fracture or malalignment.
--- OUTSIDE RECORDS SUMMARY | 2025-04-24 08:16 | XMS_ITS | Clinical Summary ---
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 Gender Identity Not on file Sexual Orientation [...] Tdap) 1985 Regular Well Visit/Exam 18-64 1992 Zoster Vaccine (1 of 2) 2024 Covid-19 Vaccine (2024-2 6 season) 2025 08/27/2020, 07/29/2020 Influenza Vaccine (#1) 2025 Hepatitis B Screening Completed 08/13/2020 , 03/30/2020, 02/24/2020 Pneumococcal vaccine <65 Aged Out No longer eligible based on patient's age to complete this topic Medical Devices Implanted Type Area Bank Guard Device Identifier Shelf Expiration Date Model / Serial / Lot [employer] [id number] Quattro Link 4.5mm 1 Row Knotless Self Punch Unique Eyelet [place] - [id number] Implanted:Qt y: 2 on 02/08/2021 by Miguel Ashton MD at [facility] Other - see comments [employer] 09/30/2025 [id number] / / [id number] [employer] [id number] [place] Suture Compositcp Broadband Od4.5mm 2 Load Slide Tape Knotless Thread - [id number] Implanted:Qt y: 1 on 02/08/2021 by Miguel Ashton MD at [facility] Right: Shoulder [employer] 04/15/2022 [id number] / / [id number] [employer] [id number] [place] Suture Compositcp Broadband Od4.5mm 2 Load Slide Tape Knotless Thread - [id number] Implanted:Qt y: 2 on 02/08/2021 by Miguel Ashton MD at [facility] Right: Shoulder [employer] 04/15/2022 [id number] / / [id number] [employer] [id number] Juggerknot Maxbraid 2.9mm 2 Loaded Soft Tapered Needle 2 [place] - [id number] Implanted:Qt y: 1 on 02/08/2021 by Miguel Ashton MD at [facility] [employer] [id number] 04/15/2025 [id number] / / [id number] Insurance [facility] H[facility]/PPO Address: [place] [address] [facility] [facility] H[facility]PPO Address: [place] [address] [facility]/PPO Address: [facility] [address] [place] [address] Care Teams Canal Equipment Maintenance Supervisor Relationship Specialty Start Date End Date Tigist Yeh PA PCP - General Physician Color Straining Bag Washer 02/11/20
--- OUTSIDE RECORDS SUMMARY | 2025-04-24 08:16 | XMS_ITS | Clinical Summary ---
Author Organization [facility] Address [address] [place] [id number] Care Team Providers Care Controller [place] Name Role Phone Unavailable Primary Care Provider [...] of 3 - 19+ 3-dose series) 1993 Pneumococcal Vaccine: 50+ Years (1 of 1 - PCV) 2024 Zoster Vaccines (1 of 2) 2024 COVID-19 Vaccine (3 - 2024-2 6 season) 2025 08/27/2020, 07/29/2020 Influenza Adult (#1) 2025 Meningococcal B Vaccine Aged Out No l onger eligible based on patient's age to complete this topic Meningococcal Vaccine Aged Out No josh sherie eligible based on patient's age to complete this topic RSV Immunizations Under 20 Months Aged Out No longer eligible b ased on patient's age to complete this topic
== END 2025-04-24 08:13 | disposition home or self-care (01) ==
PROVIDERS: PCP Internal Medicine; Visit Provider Nurse Practitioner
DX: R05.9 Cough, unspecified (principal)
CPT/HCPCS: 71046; 71110